=== PATIENT | male | born 1975 | race Caucasian/White ===

== ENCOUNTER 2020-07-22 15:04 | Outpatient (CLI) | payer OTHER, SELFPAY ==
--- NOTE | ~2020-07-22 | XR_ITS ---
EXAMINATION: XR foot RT 2V INDICATION: Right foot pain TECHNIQUE: Two views of the right foot are obtained. COMPARISON: None available FINDINGS: There is no fracture, dislocation, or subluxation. There is mild osteoarthritis at the firs t metatarsophalangeal joint and in several interphalangeal joints. The soft tissues are unremarkable. A plantar calcaneal enthesophyte is noted. IMPRESSION: 1. No acute osseous abnormality. Reviewed, dictated and finalized at location A. L CUTTER
== END 2020-07-22 15:05 | disposition home or self-care (01) ==
LOC: ANHIMG 15:10
PROVIDERS: PCP Emergency Medicine; Visit Provider Emergency Medicine
DX: M79.671 Pain in right foot (principal)
CPT/HCPCS: 73620

== ENCOUNTER 2024-12-25 11:46 | Emergency (ER) | payer OTHER, SELFPAY ==
--- NOTE | ~2024-12-25 | XR_ITS ---
XR chest 2V Ordering provider: Margarita Diaz APRN History: 49 years Male with . productive cough x 10 days, smoker . Comparison: September 04, 2012 FINDINGS: MEDIASTINUM: The cardiac silhouette is not enlarged. LUNGS: No infiltrates, effusions or pneumothorax. OTHER: No free air under the diaphragm. IMPRESSION: No acute cardiopulmonary pathology. Reviewed, dictated and finalized at location A.
[2024-12-25 11:57] VITALS: BP 121/92; PULSE 65; RESP 16; TEMP 36.4; O2SAT 99
--- NOTE | 2024-12-25 12:15 | ED.URI ---
HPI - URI/Sore Throat General Chief Complaint: Upper Respiratory Infection Stated Complaint: Upper Respiratory Symptoms Source: patient and RN notes reviewed Mode of arrival: ambulatory Limitations: no limitations History of Present Illness HPI Narrative: Patient is a 49-year-old male who presents to the [facility] with complaints of frequent productive cough that has been ongoing for the past 2 weeks. Patient states that he had what he thought was a cold around Father's Day with congestion and nasal drainage and nonproductive cough. He states that the congestion improved, but the cough had worsened. He reports fevers at the beginning, but no recent fever. Respirations are unlabored. Related Data Home Medications ?Medication ?Instructions ?Recorded ?Confirmed ?Last Taken ?Type allopurinol 300 mg tablet mg 12/25/24 Unknown History atorvastatin 20 mg tablet mg 12/25/24 Unknown History baclofen 10 mg tablet mg 12/25/24 Unknown History diclofenac sodium 75 mg mg PO 12/25/24 Unknown History tablet,delayed release nicotine 14 mg/24 hr daily 12/25/24 Unknown History transdermal patch Allergies Allergy/AdvReac Type Severity Reaction Status Date / Time Bleach (Sodium Hypochlorite) Allergy Mild Unknown Verified 12/25/24 12:10 BP PILL Allergy Unknown Uncoded 12/25/24 12:10 Review of Systems Review of Systems: CONSTITUTIONAL: Denies fever, chills, or sweats. EYES: Denies visual changes, redness, or discharge. ENT: Denies otalgia and sore throat. Reports congestion. CARDIOVASCULAR: Denies chest pain, palpitations, or edema. RESPIRATORY: Reports cough but denies dyspnea. GASTROINTESTINAL: Denies abdominal pain, nausea, vomiting, or diarrhea. GENITOURINARY: Denies dysuria or hematuria. SKIN: Denies rash or itching. MUSCULOSKELETAL: Denies back pain, joint pain, or myalgia. NEUROLOGIC: Denies headache, numbness, or weakness. Pertinent positives per HPI. FOR[facility]LY [facility] Past Medical History Medical History Bleeding gums Generalized headaches Chicken pox Family History Family History Father No problems noted. 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 There is no relevant family history pertinent to the patient complaint. Exam Narrative: GENERAL: This is a well-nourished, well-developed patient, in no apparent distress. HEAD: normocephalic, atraumatic. EYES: Sclera clear/white. Vision is grossly intact. EARS: External ears normal. Hearing grossly intact. NOSE: External nose normal with no obvious nasal discharge, nares without redness, no rhinorrhea. THROAT: Mucous membranes moist, posterior pharynx clear. NECK: Neck supple, non-tender without lymphadenopathy, masses or thyromegaly. CARDIOVASCULAR: Regular rate and rhythm without murmurs, gallops, or rubs. RESPIRATORY: Clear to auscultation. Breath sounds equal bilaterally. No wheezes, rales, or rhonchi. GASTROINTESTINAL: Abdomen soft, non-tender, nondistended. Bowel sounds are active. No hepato-splenomegaly, or palpable masses. No guarding. SKIN: warm, intact with no suspicious lesions or rash, good texture and turgor. NEURO: awake, alert, and oriented to person, place and time. There were no obvious focal neurologic abnormalities. Course Course Level of Care: Express Care Visit Vital Signs Vital signs: Vital Signs Temperature 97.5 F L 12/25/24 11:57 Pulse Rate 65 12/25/24 11:57 Respiratory Rate 16 12/25/24 11:57 Blood Pressure 121/92 H 12/25/24 11:57 Pulse Oximetry 99 12/25/24 11:57 Oxygen Delivery Room Air 12/25/24 11:57 Temperature 97.5 F L 12/25/24 11:57 Pulse Rate 65 12/25/24 11:57 Respiratory Rate 16 12/25/24 11:57 Blood Pressure 121/92 H 12/25/24 11:57 Pulse Oximetry 99 12/25/24 11:57 Oxygen Delivery Room Air 12/25/24 11:57 Reviewed MDM - URI/Sore Throat MDM Narrative Medical decision making narrative: Take steroids as directed. May use the inhaler every 4-6 hours as needed for coughing. Increase fluids at home. Avoid any and all smoke. May use a humidifier in the bedroom. Increase your Vitamin C. Follow-up with personal physician in 2-5 days. Differential Diagnosis Differential diagnosis: Likely upper respiratory infection, sinusitis, viral infection, bronchitis and other (pneumonia) Imaging Data Attestation: I personally reviewed and interpreted this imaging study as follows: Radiologist's impression: [facility] [address] [place] [address] [place] [address] XRay Report Signed Patient: Ruiz Reveles : 1975 MR#: [id number] Age: 49 Acct:[id number] Loc: [id number] ADM Date: 12/25/24Attending Dr: Ordering Physician: Margarita Diaz APRN Date of Service: 12/25/24 Procedure(s): XR chest 2V Accession Number(s): [id number] cc: Margarita Diaz APRN; Ricci, Severiano ABDUL~ XR chest 2V Ordering provider: Margarita Diaz APRN History: 49 years Male with . productive cough x 10 days, smoker . Comparison: September 04, 2012 FINDINGS: MEDIASTINUM: The cardiac silhouette is not enlarged. LUNGS: No infiltrates, effusions or pneumothorax. OTHER: No free air under the diaphragm. IMPRESSION: No acute cardiopulmonary pathology. Reviewed, dictated and finalized at location A. Please be advised this is a medical document. It is intended for [id number] communication. It is written in medical language and may contain unfamiliar abbreviations or verbiage. Medical documents are intended to carry relevant information, facts as evident, and the clinical opinion of the practitioner at the time of the encounter. This report may have been done utilizing a voice recognition system. Attempts have been made to correct errors. However, there may be uncorrected grammatical, spelling, and recognition errors present. The file time of this note does not necessarily represent the time of service. Dictated By: Salazar Lackey MD 12/25/24 1224 Signed By: <Electronically signed by Salazar Lackey MD in OV> 12/25/24 1226 Critical Care Time Critical Care Time Critical Care Time: No Discharge Plan Discharge Clinical Impression: Acute bacterial bronchitis Patient Disposition: Home Condition: Stable Instructions: Antibiotic Form, Acute Bronchitis (ED) Additional Instructions: Take steroids as directed. May use the inhaler every 4-6 hours as needed for coughing. Increase fluids at home. Avoid any and all smoke. May use a humidifier in the bedroom. Increase your Vitamin C. Follow-up with personal physician in 2-5 days. Patient Language: Senegalese Prescriptions: New azithromycin 250 mg tablet See Rx Instructions .ROUTE .COMPLEX Qty: 6 0RF Rx Instructions: For 250 mg dose pack: take 500 mg today (day 1), then 250 mg for 4 days (days 2-5) prednisone 50 mg tablet 50 mg PO DAILY 5 Days Qty: 5 0RF albuterol sulfate [Ventolin HFA] 90 mcg/actuation HFA aerosol inhaler 1 inh inhalation QID PRN (Reason: shortness of breath or wheezing) Qty: 6.7 0RF No Action atorvastatin 20 mg tablet nicotine 14 mg/24 hr patch 24 hour baclofen 10 mg tablet diclofenac sodium 75 mg tablet,delayed release (DR/EC) PO allopurinol 300 mg tablet losartan 50 mg tablet See Rx Instructions .ROUTE .COMPLEX Qty: 30 0RF Dose Instruction: TAKE 1 TABLET BY MOUTH DAILY Rx Instructions: TAKE 1 TABLET BY MOUTH DAILY cholecalciferol (vitamin D3) 1,250 mcg (50,000 unit) capsule See Rx Instructions .ROUTE .COMPLEX Qty: 4 0RF Dose Instruction: TAKE 1 CAPSULE BY MOUTH WEEKLY Rx Instructions: TAKE 1 CAPSULE BY MOUTH WEEKLY Follow-up/Referrals: Ricci,MD Severiano [Primary Care Provider] - Time of Disposition: 12:31
== END 2024-12-25 12:43 | disposition home or self-care (01) ==
PROVIDERS: Emergency Provider Nurse Practitioner; PCP Family Medicine
DX: J20.9 Acute bronchitis, unspecified (principal); F17.210 Nicotine dependence, cigarettes, uncomplicated
CPT/HCPCS: 71046; 99213; G0463

== ENCOUNTER 2025-01-04 09:54 | Emergency (ER) | payer OTHER, SELFPAY ==
[2025-01-04 10:10] VITALS: BP 135/92; PULSE 85; RESP 16; TEMP 36.5; O2SAT 98
--- NOTE | 2025-01-04 10:42 | ED.BACK ---
HPI - Back Pain/Injury General Chief Complaint: Back Pain/Injury Stated Complaint: BACK PAIN Time Seen by Provider: 01/04/25 10:23 Source: patient and RN notes reviewed Mode of arrival: ambulatory Limitations: no limitations History of Present Illness HPI Narrative: Patient presents today complaining of bilateral low back pain x4 days without radiation, recent injury, or trauma. States he does have chronic, ?disc problems for which he has been given prescriptions for baclofen and diclofenac from his primary. He has tried these without improvement and currently rates his pain 7/10 today. Denies loss of bowel or bladder control. Related Data Home Medications ?Medication ?Instructions ?Recorded ?Confirmed ?Last Taken ?Type allopurinol 300 mg tablet mg 12/25/24 Unknown History atorvastatin 20 mg tablet mg 12/25/24 Unknown History baclofen 10 mg tablet mg 12/25/24 Unknown History diclofenac sodium 75 mg mg PO 12/25/24 Unknown History tablet,delayed release nicotine 14 mg/24 hr daily 12/25/24 Unknown History transdermal patch Allergies Allergy/AdvReac Type Severity Reaction Status Date / Time Bleach (Sodium Hypochlorite) Allergy Mild Unknown Verified 01/04/25 10:20 BP PILL Allergy Unknown Uncoded 01/04/25 10:20 PMFSH Past Medical History Medical History Bleeding gums Generalized headaches Chicken pox Family History Family History Father No problems noted. Mother Breast cancer Type 2 diabetes mellitus Migraines Rheumatoid arthritis Social History Social History Social History: Patient drink 2-3 sodas daily Smoking packs per day: 0.5 Smoking cigarettes per day: 10.0 Years smoked: 10 Smoking pack-years: 5.00 Smoking status: Current some day smoker Alcohol intake: current Alcohol use details: Beer and wine, does not drink daily Substance use: never Substance use type: does not use Occupation/Education: occupation Additional occupation/education comments: Carpenter Repairer Gender identity (if verbalized by the patient): Male Sexual Orientation (if Verbalized by the Patient): Straight or Heterosexual Comments At time of signature, I have reviewed and agree with nursing past medical, surgical, social and family history unless otherwise noted. Please see nursing chart for further information. There is no relevant family history pertinent to the presenting complaint Exam Narrative: GENERAL: Well-appearing, well-nourished, and in no acute distress. HEAD: Normocephalic, atraumatic. EYES: EOMI. No redness or drainage. Conjunctivae normal. ENT: Mucous membranes pink and moist. NECK: Normal AROM. CHEST: No respiratory distress. MUSCULOSKELETAL: No bony tenderness of the thoracic or lumbar spine. Bilateral lumbar paraspinal muscle tenderness with palpable muscle spasm on the right. No SI joint tenderness bilaterally. Distal sensation intact. Saddle sensation intact. Capillary refill normal. 5/5 strength in BLE. EXTREMITIES: Normal range of motion. No edema. SKIN: Warm, dry, no rash. Capillary refill normal. Normal skin turgor. Multiple round healing bruises to the midline upper back, nontender. Patient unaware of them. Believes they may be due to buttons on an outdoor cushion he was lying on several days ago. NEURO: No focal deficits. Alert and oriented x3. Gait steady. PSYCH: Normal affect. No signs of depression or anxiety. Course Course Level of Care: Express Care Visit Vital Signs Vital signs: Vital Signs Temperature 97.7 F 01/04/25 10:10 Pulse Rate 85 01/04/25 10:10 Respiratory Rate 16 01/04/25 10:10 Blood Pressure 135/92 H 01/04/25 10:10 Pulse Oximetry 98 01/04/25 10:10 Oxygen Delivery Room Air 01/04/25 10:10 Temperature 97.7 F 01/04/25 10:10 Pulse Rate 85 01/04/25 10:10 Respiratory Rate 16 01/04/25 10:10 Blood Pressure 135/92 H 01/04/25 10:10 Pulse Oximetry 98 01/04/25 10:10 Oxygen Delivery Room Air 01/04/25 10:10 Reviewed MDM - Back Pain/Injury MDM Narrative Medical decision making narrative: 49-year-old male exacerbation of his chronic low back pain without any acute injury or trauma. No current radiation or radicular pain or paresthesias. He will be started on burst of prednisone and muscle relaxer. Considered Flexeril but patient states he has been on this before and it was not helpful. Prescription for methocarbamol and prednisone sent pharmacy. Vital signs stable. Recommend PCP follow-up next week if symptoms persist. Strict ED precautions given. Differential Diagnosis Differential diagnosis: Likely lumbar radiculopathy, sciatica, strain of lumbar region and other (Muscle spasm) Critical Care Time Critical Care Time Critical Care Time: No Discharge Plan Discharge Clinical Impression: Acute exacerbation of chronic low back pain Patient Disposition: Home Condition: Stable Instructions: Acute Low Back Pain (ED) Additional Instructions: Please take the methocarbamol and prednisone as directed. You may also take [id number] diclofenac, Tylenol, ibuprofen for pain if needed. Do not take your home baclofen if your going to take the methocarbamol. Do not drive within 8 hours of taking the methocarbamol as it can make you drowsy. Follow-up with your PCP next week if symptoms are not improving. Go to the ER immediately with worsening symptoms such as numbness or tingling in the legs or feet or genitalia, loss of bowel or bladder control. Your blood pressure was elevated above 120/80 today at Urgent Care. This puts you above the threshold for follow up. Please schedule a followup visit with your personal physician as soon as possible, for further evaluation and treatment. Even blood pressure exceeding 120/80 may indicate pre-hypertension. Patient Language: Frisian Prescriptions: New prednisone 20 mg tablet 40 mg PO DAILY 5 Days Qty: 10 0RF methocarbamol 750 mg tablet 750 mg PO QID Qty: 20 0RF No Action atorvastatin 20 mg tablet nicotine 14 mg/24 hr patch 24 hour baclofen 10 mg tablet diclofenac sodium 75 mg tablet,delayed release (DR/EC) PO allopurinol 300 mg tablet azithromycin 250 mg tablet See Rx Instructions .ROUTE .COMPLEX Qty: 6 0RF Rx Instructions: For 250 mg dose pack: take 500 mg today (day 1), then 250 mg for 4 days (days 2-5) prednisone 50 mg tablet 50 mg PO DAILY 5 Days Qty: 5 0RF albuterol sulfate [Ventolin HFA] 90 mcg/actuation HFA aerosol inhaler 1 inh inhalation QID PRN (Reason: shortness of breath or wheezing) Qty: 6.7 0RF losartan 50 mg tablet See Rx Instructions .ROUTE .COMPLEX Qty: 30 0RF Dose Instruction: TAKE 1 TABLET BY MOUTH DAILY Rx Instructions: TAKE 1 TABLET BY MOUTH DAILY cholecalciferol (vitamin D3) 1,250 mcg (50,000 unit) capsule See Rx Instructions .ROUTE .COMPLEX Qty: 4 0RF Dose Instruction: TAKE 1 CAPSULE BY MOUTH WEEKLY Rx Instructions: TAKE 1 CAPSULE BY MOUTH WEEKLY Follow-up/Referrals: Ricci,MD Severiano [Primary Care Provider] - Time of Disposition: 10:44
== END 2025-01-04 10:46 | disposition home or self-care (01) ==
PROVIDERS: Emergency Provider Nurse Practitioner; PCP Family Medicine
DX: M54.50 Low back pain, unspecified (principal); G89.29 Other chronic pain; F17.210 Nicotine dependence, cigarettes, uncomplicated
CPT/HCPCS: 99213; G0463